=== PATIENT | female | born 1990 | race American Indian/Alaskan Native ===

== ENCOUNTER 2016-06-14 23:34 | Emergency (ER) | payer MEDICARE ==
--- NOTE | 2016-06-15 02:45 | Emergency Department Report ---
HPI - General Chief Complaint: Psych Time Seen by Provider: 06/15/16 02:35 - [facility] HPI: [facility] The patient is a 25-year-old female visiting with a chief complaint of altered mental status. The patient was reportedly brought in to the ED by EMS for altered mental status/psychiatric evaluation. Information is limited at this time is EMS report is not immediately available and EMS is no longer present. The patient is unaware washing positive the ED but appears confused. Patient states she does not know where she is. When asked if she is aware of the state ([place]) that she is in she states "no." Patient is unable to tell me the current year. When asked her name the patient states "K." when asked what her full name is the patient states "just K." when asked how she is feeling the patient states "fine." Patient denies suicidal or homicidal ideation. Patient denies auditory or visual hallucinations. Patient denies any ingestions tonight Location: Mental state Duration: Unknown Quality: Confused Severity: Moderate Modifying factors: Unknown Context: [see above] Mode of transportation: EMS ED Past Medical Hx - Past Medical History Previous Medical History?: No Additional medical history: Denies medical or psychiatric history - Surgical History Past Surgical History?: No Additional Surgical History: Denies - Family History Family history: no significant - Social History Smoking Status: Never Smoker Substance Use Type: None (denies illicit drug use) - Medications Home Medications: Home Medications Medication Instructions Recorded Confirmed Last Taken Type No Known Home Medications [No 06/15/16 06/15/16 Unknown History Reported Home Medications] ED Review of Systems ROS: Stated complaint: EVAL Other details as noted in HPI Comment: All other systems reviewed and negative Constitutional: denies: chills, fever Eyes: denies: eye pain, eye discharge, vision change ENT: denies: ear pain, throat pain Respiratory: denies: cough, shortness of breath, wheezing Cardiovascular: denies: chest pain, palpitations Endocrine: no symptoms reported Gastrointestinal: denies: abdominal pain, nausea, diarrhea Genitourinary: denies: urgency, dysuria, discharge Musculoskeletal: denies: back pain, joint swelling, arthralgia Skin: denies: rash, lesions Neurological: denies: headache, weakness, paresthesias Psychiatric: denies: anxiety, depression Hematological/Lymphatic: denies: easy bleeding, easy bruising Physical Exam - Physical Exam Vital Signs: Vital Signs 06/15/16 02:34 Temperature 98.4 F Pulse Rate 68 Respiratory 18 Rate Blood Pressure 110/74 O2 Sat by Pulse 100 Oximetry Physical Exam: GENERAL: The patient is well-developed well-nourished female standing next to stretcher not appearing to be in acute distress. Poor hygiene HEENT: Normocephalic. Atraumatic. Extraocular motions are intact. Patient has moist mucous membranes. NECK: Supple. Trachea midline CHEST/LUNGS: Clear to auscultation. There is no respiratory distress noted. HEART/CARDIOVASCULAR: Regular. There is no tachycardia. There is no gallop rub or murmur. ABDOMEN: Abdomen is soft, nontender. Patient has normal bowel sounds. There is no abdominal distention. SKIN: There is no rash. There is no edema. There is no diaphoresis. NEURO: The patient is awake, alert but not oriented to place, time or self. The patient is cooperative. The patient has no focal neurologic deficits. The patient has normal speech and gait. MUSCULOSKELETAL: There is no evidence of acute injury. ED Course Vital Signs 06/15/16 02:34 Temperature 98.4 F Pulse Rate 68 Respiratory 18 Rate Blood Pressure 110/74 O2 Sat by Pulse 100 Oximetry ED Medical Decision Making - Lab Data Result diagrams: 06/15/16 02:52 06/15/16 04:39 Laboratory Tests 06/15/16 06/15/16 06/15/16 02:52 02:52 02:52 WBC 9.1 RBC 4.75 Hgb 14.1 Hct 43.0 H MCV 91 MCH 30 MCHC 33 RDW 14.1 Plt Count 339 Lymph % (Auto) 42.5 H [place] % (Auto) 5.1 Eos % (Auto) 2.0 Baso % (Auto) 0.8 Lymph # 3.9 [place] # 0.5 Eos # 0.2 Baso # 0.1 Seg Neutrophils % 49.6 Seg Neutrophils # 4.5 Sodium Potassium Chloride Carbon Dioxide Anion Gap BUN Creatinine Estimated GFR BUN/Creatinine Ratio Glucose Calcium Total Bilirubin AST ALT Alkaline Phosphatase Total Protein Albumin Albumin/Globulin Ratio HCG, Qual Urine Color Yellow Urine Turbidity Clear Urine pH 6.0 Ur Specific Walsh 1.019 Urine Protein <15 mg/dl Urine Glucose (UA) Neg Urine Ketones Neg Urine Blood Neg Urine Nitrite Neg Urine Bilirubin Neg Urine Urobilinogen 2.0 Ur Leukocyte Esterase Neg Urine WBC (Auto) 2.0 Urine RBC (Auto) 2.0 U Epithel Cells (Auto) 5.0 Urine Mucus Few Salicylates Urine Opiates Screen Presumptive negative Urine Methadone Screen Presumptive negative Acetaminophen Ur Barbiturates Screen Presumptive negative Ur Phencyclidine Scrn Presumptive negative Ur Amphetamines Screen Presumptive negative U Benzodiazepines Scrn Presumptive negative Urine Cocaine Screen Presumptive positive U Marijuana (THC) Screen Presumptive positive Drugs of Abuse Note Disclamer Plasma/Serum Alcohol 06/15/16 06/15/16 06/15/16 02:52 02:52 02:52 WBC RBC Hgb Hct MCV MCH MCHC RDW Plt Count Lymph % (Auto) [place] % (Auto) Eos % (Auto) Baso % (Auto) Lymph # [place] # Eos # Baso # Seg Neutrophils % Seg Neutrophils # Sodium Potassium Chloride Carbon Dioxide Anion Gap BUN Creatinine Estimated GFR BUN/Creatinine Ratio Glucose Calcium Total Bilirubin AST ALT Alkaline Phosphatase Total Protein Albumin Albumin/Globulin Ratio HCG, Qual Urine Color Urine Turbidity Urine pH Ur Specific Walsh Urine Protein Urine Glucose (UA) Urine Ketones Urine Blood Urine Nitrite Urine Bilirubin Urine Urobilinogen Ur Leukocyte Esterase Urine WBC (Auto) Urine RBC (Auto) U Epithel Cells (Auto) Urine Mucus Salicylates < 0.3 L Urine Opiates Screen Urine Methadone Screen Acetaminophen < 15.0 Ur Barbiturates Screen Ur Phencyclidine Scrn Ur Amphetamines Screen U Benzodiazepines Scrn Urine Cocaine Screen U Marijuana (THC) Screen Drugs of Abuse Note Plasma/Serum Alcohol < 0.01 06/15/16 06/15/16 02:52 04:39 WBC RBC Hgb Hct MCV MCH MCHC RDW Plt Count Lymph % (Auto) [place] % (Auto) Eos % (Auto) Baso % (Auto) Lymph # [place] # Eos # Baso # Seg Neutrophils % Seg Neutrophils # Sodium 140 Potassium 3.5 L Chloride 101.1 Carbon Dioxide 25 Anion Gap 17 BUN 10 Creatinine 0.7 Estimated GFR > 60 BUN/Creatinine Ratio 14.28 Glucose 95 Calcium 9.0 Total Bilirubin 0.4 AST 16 ALT 9 Alkaline Phosphatase 82 Total Protein 7.0 Albumin 4.0 Albumin/Globulin Ratio 1.3 HCG, Qual Negative Urine Color Urine Turbidity Urine pH Ur Specific Walsh Urine Protein Urine Glucose (UA) Urine Ketones Urine Blood Urine Nitrite Urine Bilirubin Urine Urobilinogen Ur Leukocyte Esterase Urine WBC (Auto) Urine RBC (Auto) U Epithel Cells (Auto) Urine Mucus Salicylates Urine Opiates Screen Urine Methadone Screen Acetaminophen Ur Barbiturates Screen Ur Phencyclidine Scrn Ur Amphetamines Screen U Benzodiazepines Scrn Urine Cocaine Screen U Marijuana (THC) Screen Drugs of Abuse Note Plasma/Serum Alcohol - Differential Diagnosis substance abuse, IC mass, psychosis, schizophrenia Critical care attestation.: If time is entered above; I have spent that time in minutes in the direct care of this critically ill patient, excluding procedure time. ED Disposition Clinical Impression: Altered mental status Disposition: DC/TX PSY HOSP/PSY UNIT Is pt being admited?: No Does the pt Need Aspirin: No Condition: Stable Referrals: PRIMARY CARE, [Primary Care Provider] - 3-5 Days Time of Disposition: 06:19 (CT pending)
[2016-06-15 03:16] LABS: Urine Drugs of Abuse Note Disclamer
[2016-06-15 03:19] LABS: Basophils % (Auto) 0.8 % (0.0-1.8); Hemoglobin 14.1 gm/dl (10.1-14.3); Mean Corpuscular HGB Conc 33 % (30-34); Mean Corpuscular Hemoglobin 30 pg (28-32); Mean Corpuscular Volume 91 fl (79-97); Platelet Count 339 K/mm3 (140-440); Red Blood Count 4.75 M/mm3 (3.65-5.03); Red Cell Distribution Width 14.1 % (13.2-15.2); White Blood Count 9.1 K/mm3 (4.5-11.0)
[2016-06-15 03:34] LABS: Bilirubin,Urine NEG (Negative); Blood,Urine NEG (Negative); Ketones,Urine NEG (Negative); Leukocyte Esterase,Urine NEG (Negative); Mucus,Urine FEW /HPF; Nitrite,Urine NEG (Negative); Protein,Urine <15 mg/dL mg/dL (Negative)
[2016-06-15 05:02] LABS: Alanine Aminotransferase 9 units/L (7-56); Albumin/Globulin Ratio 1.3 %; Alkaline Phosphatase 82 units/L (35-129); BUN/Creatinine Ratio 14.28; Bilirubin,Total 0.4 mg/dL (0.1-1.2); Blood Urea Nitrogen 10 mg/dL (7-17); Carbon Dioxide 25 mmol/L (22-30); Chloride 101.1 mmol/L (98-107); Glucose 95 mg/dL (65-100); Potassium 3.5 mmol/L (3.6-5.0); Sodium 140 mmol/L (137-145)
[2016-06-15 05:39] LABS: Anion Gap 17 mmol/L
--- NOTE | 2016-06-15 06:39 | Cat Scan Report ---
FINAL REPORT PROCEDURE: CT HEAD/BRAIN WO CON TECHNIQUE: Computerized tomography of the head was performed without contrast material. HISTORY: altered mental status COMPARISON: No prior studies are available for comparison. FINDINGS: Skull and scalp: Normal. Paranasal sinuses: Normal. Ventricles and subarachnoid spaces: Normal. Cerebrum: No evidence of hemorrhage, acute infarction or mass . Cerebellum and brainstem: No evidence of hemorrhage, acute infarction or mass. Vasculature: Normal. Comments: None. IMPRESSION: Normal Examination
--- NOTE | 2016-06-16 17:01 | Emergency Department Report ---
Blank Doc - Documentation Documentation: Vital Signs - 24 hr 06/15/16 06/16/16 06/16/16 22:00 08:32 08:33 Temperature 98.8 F 98.0 F Pulse Rate 88 58 L Respiratory 18 12 12 Rate Blood Pressure 109/74 112/64 [Left] O2 Sat by Pulse 98 100 100 Oximetry Vital signs reviewed. No events reported. Awaiting placement
--- NOTE | 2016-06-17 15:30 | Emergency Department Report ---
Blank Doc - Documentation Documentation: Vital signs reviewed. Patient has been resting quietly require no intervention. Patient continues to await mental health placement.
--- NOTE | 2016-06-19 05:46 | Event Note ---
Date: 06/19/16 Vital signs reviewed. No recent events. awaits psychiatric placement. Vital Signs 06/15/16 06/15/16 06/15/16 00:00 02:34 10:01 Temperature 98.0 F 98.4 F 97.8 F Pulse Rate 84 68 85 Respiratory 16 18 14 Rate Blood Pressure 110/74 Blood Pressure 107/72 113/63 [Left] O2 Sat by Pulse 100 100 96 Oximetry 06/15/16 06/16/16 06/16/16 22:00 08:32 08:33 Temperature 98.8 F 98.0 F Pulse Rate 88 58 L Respiratory 18 12 12 Rate Blood Pressure Blood Pressure 109/74 112/64 [Left] O2 Sat by Pulse 98 100 100 Oximetry 06/16/16 06/17/16 06/17/16 21:01 00:40 07:43 Temperature Pulse Rate 59 L Respiratory 16 16 15 Rate Blood Pressure Blood Pressure 109/73 [Left] O2 Sat by Pulse 98 Oximetry 06/17/16 06/18/16 06/18/16 19:40 07:40 08:30 Temperature 98.1 F 98.1 F Pulse Rate 60 60 Respiratory 18 12 22 Rate Blood Pressure Blood Pressure 110/77 96/55 [Left] O2 Sat by Pulse 100 97 97 Oximetry 06/18/16 06/18/16 19:53 20:00 Temperature 98.9 F Pulse Rate 52 L Respiratory 20 18 Rate Blood Pressure Blood Pressure 100/58 [Left] O2 Sat by Pulse 100 Oximetry
--- NOTE | 2016-06-19 18:36 | Emergency Department Report ---
Blank Doc - Documentation Documentation: Vital Signs - 24 hr 06/18/16 06/18/16 06/19/16 19:53 20:00 12:55 Temperature 98.9 F 98.5 F Pulse Rate 52 L 57 L Respiratory 20 18 16 Rate Blood Pressure 100/58 119/53 [Left] O2 Sat by Pulse 100 99 Oximetry 06/19/16 17:39 Temperature Pulse Rate Respiratory 18 Rate Blood Pressure [Left] O2 Sat by Pulse 100 Oximetry Vital signs reviewed. Patient reported them verbally confrontational security and subsequently placed in seclusion. Awaiting placement
[2016-06-19 20:07] VITALS: BP 116/67
--- NOTE | 2016-06-20 05:55 | Event Note ---
Date: 06/20/16 Vital signs reviewed. Patient awaits psychiatric placement. Vital Signs 06/15/16 06/15/16 06/15/16 00:00 02:34 10:01 Temperature 98.0 F 98.4 F 97.8 F Pulse Rate 84 68 85 Respiratory 16 18 14 Rate Blood Pressure 110/74 Blood Pressure 107/72 113/63 [Left] O2 Sat by Pulse 100 100 96 Oximetry 06/15/16 06/16/16 06/16/16 22:00 08:32 08:33 Temperature 98.8 F 98.0 F Pulse Rate 88 58 L Respiratory 18 12 12 Rate Blood Pressure Blood Pressure 109/74 112/64 [Left] O2 Sat by Pulse 98 100 100 Oximetry 06/16/16 06/17/16 06/17/16 21:01 00:40 07:43 Temperature Pulse Rate 59 L Respiratory 16 16 15 Rate Blood Pressure Blood Pressure 109/73 [Left] O2 Sat by Pulse 98 Oximetry 06/17/16 06/18/16 06/18/16 19:40 07:40 08:30 Temperature 98.1 F 98.1 F Pulse Rate 60 60 Respiratory 18 12 22 Rate Blood Pressure Blood Pressure 110/77 96/55 [Left] O2 Sat by Pulse 100 97 97 Oximetry 06/18/16 06/18/16 06/19/16 19:53 20:00 12:55 Temperature 98.9 F 98.5 F Pulse Rate 52 L 57 L Respiratory 20 18 16 Rate Blood Pressure Blood Pressure 100/58 119/53 [Left] O2 Sat by Pulse 100 99 Oximetry 06/19/16 06/19/16 17:39 20:06 Temperature 98.6 F Pulse Rate 64 Respiratory 18 16 Rate Blood Pressure Blood Pressure 116/67 [Left] O2 Sat by Pulse 100 100 Oximetry
== END 2016-06-20 12:18 ==
LOC: EEVIPCON 23:34 → ED 23:34
DX: R41.82 Altered mental status, unspecified (principal)
CPT/HCPCS: 36415; 70450; 80053; 81001; 84703; 85025; 99285; G0479; G0480; 80307; 80320

== ENCOUNTER 2016-07-19 23:27 | Emergency (ER) | payer MEDICARE | END 2016-07-19 23:50 | disposition left against medical advice (07) | LOC: ED 23:27 | DX: R20.2 Paresthesia of skin (principal); Z53.21 Procedure and treatment not carried out due to patient leaving prior to being seen by health care provider ==